=== PATIENT | female | born 1965 | race Caucasian/White ===

== ENCOUNTER 2017-12-17 15:12 | Emergency (ER) | payer OTHER ==
--- NOTE | 2017-12-17 15:30 | ER Report ---
History and Physical Time Seen By MD: 15:29 Hx. of Stated Complaint: PT REPORTS 1 HOUR AGO CHEST PAIN AND NAUSEA/DIZZINESS (RACQUEL SANCHEZ MD) HPI/ROS CHIEF COMPLAINT: Chest pain, palpitations HISTORY OF PRESENT ILLNESS: Patient is a 52-year-old female with no significant past medical history other than history of premature atrial contractions and atrial tachycardia. She presents to the emergency department with complaint of chest pressure that began approximately 2:15 this afternoon while sitting. She denies any exertional component she does report discomfort under the xiphoid area and across the precordium. She does also report some discomfort that goes into the left shoulder. Currently she is symptom-free at this time. She is not a smoker. She has no known cardiac disease. REVIEW OF SYSTEMS: Constitutional: No fever, no chills. Eyes: No discharge. ENT: No sore throat. Cardiovascular: Chest pressure and palpitations Respiratory: No cough, no shortness of breath. Gastrointestinal: No abdominal pain, no vomiting. Genitourinary: No hematuria. Musculoskeletal: No back pain. Skin: No rashes. Neurological: No headache. (RACQUEL SANCHEZ MD) Allergies: Coded Allergies: No Known Drug Allergies (Unverified , 12/17/17) Home Meds No Active Prescriptions or Reported Meds Past Medical/Surgical History Past medical history for atrial tachycardia (RACQUEL SANCHEZ MD) Constitutional Vital Sign - Last 24 Hours 12/17/17 12/17/17 12/17/17 12/17/17 15:21 15:23 15:27 15:42 Temp 97.5 Pulse 77 76 81 Resp 18 9 18 B/P (MAP) 128/72 (90) 128/72 Pulse Ox 99 100 O2 Delivery Room Air 12/17/17 19:05 Pulse 64 Resp 16 B/P (MAP) 103/69 (80) Pulse Ox 94 O2 Delivery Room Air (WINSAI SALDAÑA MD) Physical Exam General Appearance: The patient is alert, has no immediate need for airway protection and no signs of toxicity. [ ] Eyes: Pupils equal and round no pallor or injection. ENT, Mouth: Mucous membranes are moist. Respiratory: There are no retractions, lungs are clear to auscultation. Cardiovascular: Regular rate and rhythm. [ ] Gastrointestinal: Abdomen is soft and non tender, no masses, bowel sounds normal. Neurological: [ ] Skin: Warm and dry, no rashes. Musculoskeletal: Neck is supple non tender. Extremities are nontender, nonswollen and have full range of motion. (RACQUEL SANCHEZ MD) Medical Decision Making Data Points Result Diagram: 12/17/17 1540 12/17/17 1540 Laboratory Hematology Test 12/17/17 15:40 12/17/17 18:22 Red Blood Count 4.64 M/uL (4.17-5.56) Mean Corpuscular Volume 89.1 fL (80.0-96.0) Mean Corpuscular Hemoglobin 30.5 pg (26.0-33.0) Mean Corpuscular Hemoglobin Concent 34.3 g/dL (32.0-36.0) Red Cell Distribution Width 12.6 % (11.5-14.5) Mean Platelet Volume 9.9 fL (7.2-11.1) Neutrophils (%) (Auto) 63.9 % (39.4-72.5) Lymphocytes (%) (Auto) 24.3 % (17.6-49.6) Monocytes (%) (Auto) 9.5 % (4.1-12.4) Eosinophils (%) (Auto) 1.1 % (0.4-6.7) Basophils (%) (Auto) 1.2 % (0.3-1.4) Nucleated RBC Relative Count (auto) 0.0 /100WBC Neutrophils # (Auto) 3.6 K/uL (2.0-7.4) Lymphocytes # (Auto) 1.4 K/uL (1.3-3.6) Monocytes # (Auto) 0.5 K/uL (0.3-1.0) Eosinophils # (Auto) 0.1 K/uL (0.0-0.5) Basophils # (Auto) 0.1 K/uL (0.0-0.1) Nucleated RBC Absolute Count (auto) 0.00 K/uL Prothrombin Time 13.8 seconds (12.0-14.4) Prothromb Time International Ratio 1.05 Sodium Level 138 mmol/L (137-145) Potassium Level 3.8 mmol/L (3.5-5.0) Chloride Level 101 mmol/L (98-107) Carbon Dioxide Level 27 mmol/L (22-31) Blood Urea Nitrogen 9 mg/dl (7-18) Creatinine 0.80 mg/dl (0.52-1.04) Glomerular Filtration Rate Calc > 60.0 Random Glucose 117 mg/dl (75-110) Calcium Level 9.1 mg/dl (8.4-10.2) Total Bilirubin 0.3 mg/dl (0.2-1.3) Aspartate Amino Transf (AST/SGOT) 19 U/L (0-35) Alanine Aminotransferase (ALT/SGPT) 33 U/L (0-56) Alkaline Phosphatase 51 U/L (0-126) Total Protein 6.9 gm/dl (6.3-8.2) Albumin 4.0 g/dl (3.5-5.0) Troponin I < 0.012 ng/ml Chemistry Test 12/17/17 15:40 12/17/17 18:22 White Blood Count 5.7 k/uL (4.5-11.0) Red Blood Count 4.64 M/uL (4.17-5.56) Hemoglobin 14.2 g/dL (12.0-16.0) Hematocrit 41.4 % (34.0-47.0) Mean Corpuscular Volume 89.1 fL (80.0-96.0) Mean Corpuscular Hemoglobin 30.5 pg (26.0-33.0) Mean Corpuscular Hemoglobin Concent 34.3 g/dL (32.0-36.0) Red Cell Distribution Width 12.6 % (11.5-14.5) Platelet Count 189 K/uL (150-450) Mean Platelet Volume 9.9 fL (7.2-11.1) Neutrophils (%) (Auto) 63.9 % (39.4-72.5) Lymphocytes (%) (Auto) 24.3 % (17.6-49.6) Monocytes (%) (Auto) 9.5 % (4.1-12.4) Eosinophils (%) (Auto) 1.1 % (0.4-6.7) Basophils (%) (Auto) 1.2 % (0.3-1.4) Nucleated RBC Relative Count (auto) 0.0 /100WBC Neutrophils # (Auto) 3.6 K/uL (2.0-7.4) Lymphocytes # (Auto) 1.4 K/uL (1.3-3.6) Monocytes # (Auto) 0.5 K/uL (0.3-1.0) Eosinophils # (Auto) 0.1 K/uL (0.0-0.5) Basophils # (Auto) 0.1 K/uL (0.0-0.1) Nucleated RBC Absolute Count (auto) 0.00 K/uL Prothrombin Time 13.8 seconds (12.0-14.4) Prothromb Time International Ratio 1.05 Glomerular Filtration Rate Calc > 60.0 Calcium Level 9.1 mg/dl (8.4-10.2) Total Bilirubin 0.3 mg/dl (0.2-1.3) Aspartate Amino Transf (AST/SGOT) 19 U/L (0-35) Alanine Aminotransferase (ALT/SGPT) 33 U/L (0-56) Alkaline Phosphatase 51 U/L (0-126) Total Protein 6.9 gm/dl (6.3-8.2) Albumin 4.0 g/dl (3.5-5.0) Troponin I < 0.012 ng/ml Coagulation Test 12/17/17 15:40 Prothrombin Time 13.8 seconds Prothromb Time International Ratio 1.05 (WINSAI SALDAÑA MD) EKG/Imaging EKG Interpretation EKG shows normal sinus rhythm with no significant ST segment or T-wave abnormalities Monitor Interpretation: Normal Sinus Rhythm Imaging FACILITY: [facility] - [place] PATIENT NAME: Marisol Lugo : 1965 MR: [id number] V: [id number] EXAM DATE: ORDERING PHYSICIAN: RACQUEL SANCHEZ TECHNOLOGIST: Location: [facility] [place] Patient: Marisol Lugo : 1965 Visit/Account:[id number] Date of Sevice: 12/17/2017 CHEST SINGLE AP Indication: Chest pain, dizziness and lightheadedness.. Comparison: None available Findings: Cardiomediastinal silhouette and pulmonary vessels within normal limits. There is no focal infiltrate or lobar consolidation. No pneumothorax or pleural effusion. No nodule. Upper abdomen is unremarkable. No acute bony abnormality. IMPRESSION: 1. No acute cardiopulmonary process. Report Dictated By: Vahe Heard at 12/17/2017 4:19 PM Report E-Signed By: Vahe Heard at 12/17/2017 4:21 PM WSN:[id number] (RACQUEL SANCHEZ MD) ED Course/Re-evaluation ED Course 12/17/2017 3:45:03 pm plan at this time will be cardiac workup including troponin EKG and chest x-ray. We will repeat an EKG and troponin at 6:30. Decision to Disposition Date: Dec 17, 2017 Decision to Disposition Time: 19:00 (RACQUEL SANCHEZ MD) ED Course I discussed this patient with Dr. Sanchez at shift change and assumed care of the patient. Repeat Troponin is negative. x-ray negative as noted. EKG without any ischemic changes. She is pain free. Discussed other possible causes of pain. She was encouraged to follow-up with primary care. She will discuss possible stress testing with them. Decision to Disposition Date: Dec 17, 2017 Decision to Disposition Time: 18:58 (SAI WALDEN MD) Depart Departure Latest Vital Signs Vital Signs Date Time Temp Pulse Resp B/P (MAP) Pulse Ox O2 Delivery O2 Flow Rate FiO2 12/17/17 19:05 64 16 103/69 (80) 94 Room Air 12/17/17 15:23 97.5 (SAI WALDEN MD) Impression: Primary Impression: Chest pain Condition: Improved Disposition: HOME OR SELF-CARE New Scripts No Active Prescriptions or Reported Meds Patient Instructions: Chest Pain (ED) Additional Instructions: Please see your primary care provider in the next week for re-evaluation and discussion about possible need for stress testing. Rest and increase fluid intake over the next few days. Return for recurrent chest pain, nausea/vomiting, or fevers/chills. Problem Qualifiers Primary Impression: Chest pain Chest pain type: unspecified Qualified Codes: R07.9 - Chest pain, unspecified RACQUEL SANCHEZ MD Dec 17, 2017 15:30 SAI WALDEN MD Dec 17, 2017 18:25
[2017-12-17] MEDS ORDERED: ASPIRIN 81 MG CHEW PO ONE (15:35)
[2017-12-17 15:56] LABS: PLATELET COUNT, AUTOMATED 189 K/uL (150-450)
[2017-12-17 15:58] LABS: INR 1.05
--- NOTE | 2017-12-17 15:58 | EKG ---
FACILITY: [facility] - [place] PATIENT NAME: GENTRY PINEDA : [id number] MR: [id number] V: [id number] EXAM DATE: ORDERING PHYSICIAN: RACQUEL GARCIA TECHNOLOGIST: CHRIS Patel Reason : CARDIAC Blood Pressure : / mmHG Vent. Rate : 071 BPM Atrial Rate : 071 BPM P-R Int : 128 ms QRS Dur : 076 ms QT Int : 424 ms P-R-T Axes : 077 071 074 degrees QTc Int : 460 ms Normal sinus rhythm Possible Left atrial enlargement Borderline ECG No previous ECGs available Confirmed by RAJEEV LOCO ([id number]) on 12/17/2017 7:17:12 PM Referred By: JOSE Confirmed By:RAJEEV LOCO
[2017-12-17] MEDS ORDERED: NS(*) 0.9% 1000 ML BAG 1,000 ML IV ONE (16:15)
--- NOTE | 2017-12-17 16:25 | RADIOLOGY IMAGING REPORT ---
FACILITY: [facility] [place] PATIENT NAME: Marisol Lugo : 1965 MR: [id number] V: [id number] EXAM DATE: ORDERING PHYSICIAN: RACQUEL GARCIA [place]CHN[place] [facility] [place] : 1965 Visit/Account:[id number] Date of Sevice: 12/17/2017 CHEST SINGLE AP Indication: Chest pain, dizziness and lightheadedness.. Comparison: None available Findings: Cardiomediastinal silhouette and pulmonary vessels within normal limits. There is no focal infiltrate or lobar consolidation. No pneumothorax or pleural effusion. No nodule. Upper abdomen is unremarkable. No acute bony abnormality. IMPRESSION: 1. No acute cardiopulmonary process. Report Dictated By: Vahe Heard at 12/17/2017 4:19 PM Report E-Signed By: Vahe Herad at 12/17/2017 4:21 PM WSN:[id number]
[2017-12-17 19:05] VITALS: BP 103/69
== END 2017-12-17 19:15 | disposition home or self-care (01) ==
LOC: ER 15:14
DX: R07.89 Other chest pain (principal)
CPT/HCPCS: 71045; 84484; 85025; 85610; 93005; 96360; 99284; J7030; 82040; 82247; 82310; 82374; 82435; 82565; 82947; 84075; 84132; 84155; 84295; 84450; 84460; 84520